=== PATIENT | male | born 1945 | race Caucasian/White ===

== ENCOUNTER 2022-11-30 14:41 | Inpatient (IN) ==
[2022-11-30] MEDS ORDERED: DEXTROSE 50% 50 ML SYRINGE IV ONE ×2 (15:30→17:01)
[2022-11-30] MEDS ORDERED: DEXTROSE 5%-1/2NS 1,000 ML IV SCH (15:30)
[2022-11-30 15:59] LABS: POC Calcium, Ionized 1.05 (1.16-1.32); POC Creatinine 0.8 (0.6-1.2); POC Potassium 4.4 (3.3-5.1)
[2022-11-30 16:25] LABS: Basophils # (Auto) 0.02 K/mcL (0.00-0.30); Basophils % (Auto) 0.3 % (0.0-2.0); Eosinophils # (Auto) 0.07 K/mcL (0.00-0.70); Eosinophils % (Auto) 0.9 % (0.0-7.0); Hematocrit 39.6 % (40.1-51.0); Hemoglobin 12.6 g/dL (13.7-17.5); Lymphocytes # (Auto) 0.48 K/mcL (1.50-4.80); Lymphocytes % (Auto) 6.4 % (15.5-49.0); Mean Cell Volume 89.4 fL (80.0-100.0); Mean Corpuscular HGB Conc 31.8 g/dL (31.0-36.0); Mean Platelet Volume 9.3 fL (8.8-12.5); Monocytes # (Auto) 0.64 K/mcL (0.10-0.90); Monocytes % (Auto) 8.5 % (1.0-12.0); Neutrophils % (Auto) 83.5 % (38.0-78.0); Platelet Count 377 K/mcL (140-440); RBC 4.43 M/mcL (4.63-6.08); Red Cell Distribution Width 13.4 % (11.5-14.5); WBC 7.5 K/mcL (4.5-11.0)
[2022-11-30 16:57] LABS: ALT/SGPT 23 U/L (<40); AST/SGOT 26 U/L (<40); Albumin 3.3 gm/dL (3.2-5.2); Alkaline Phosphatase 39 U/L (39-117); Beta Hydroxybutyrate 0.08 mmol/L (<0.27); Bilirubin,Direct < 0.2 mg/dL (0-0.3); Bilirubin,Total 0.2 mg/dL (0.1-1.0)
[2022-11-30] MEDS ORDERED: DEXTROSE 50% 50 ML VIAL IV ONE (17:11)
[2022-11-30] MEDS ORDERED: DEXTROSE 5% IN WATER 1,000 ML IV SCH (17:15)
[2022-11-30] MEDS ORDERED: LINEZOLID 600 MG/300 ML BAG IV ONE (17:20)
[2022-11-30] MEDS ORDERED: PIPERACILLIN SODIUM/TAZOBACTAM 3.375 GM in DEXTROSE 5% IN WATER 50 ML IV ONE (17:20)
[2022-11-30] MEDS ORDERED: CALCIUM GLUCONATE 4.65 MEQ/10 ML VIAL IV ONE (17:20)
[2022-11-30] MEDS ORDERED: CALCIUM GLUCONATE 4.65 MEQ in DEXTROSE 5% IN WATER 50 ML IV ONE (18:00)
[2022-11-30] MEDS ORDERED: DEXTROSE 10 % IN WATER 1,000 ML IV SCH (18:30)
[2022-11-30] MEDS ORDERED: HALOPERIDOL LACTATE 5 MG/ML VIAL IV ONE (19:45)
[2022-11-30] MEDS ORDERED: DEXTROSE 50% 50 ML VIAL IV PRN (19:49)
[2022-11-30] MEDS ORDERED: LACTULOSE 20 GM/30 ML ORAL.SOL PO PRN (19:49)
[2022-11-30] MEDS ORDERED: ONDANSETRON 4 MG/2 ML VIAL IV PRN (19:49)
[2022-11-30] MEDS ORDERED: DEXTROSE 31 GM ORAL.SUSP PO PRN (19:49)
[2022-11-30] MEDS ORDERED: SENNOSIDES 1 TABLET PO PRN (19:49)
[2022-11-30] MEDS ORDERED: ACETAMINOPHEN 325 MG TABLET PO PRN (19:49)
[2022-11-30] MEDS: HALOPERIDOL LACTATE 5 MG/ML VIAL IV PRN (19:50)
[2022-11-30] MEDS ORDERED: DEXMEDETOMIDINE 100 ML IV ONE (20:28)
[2022-11-30] MEDS ORDERED: DEXMEDETOMIDINE 400 MCG in PREMIX 1 BAG IV SCH (20:30)
[2022-11-30] MEDS ORDERED: QUEtiapine 25 MG TABLET PO SCH (21:00)
[2022-11-30] MEDS ORDERED: INSULIN LISPRO 1 UNIT/0.01 ML UNIT SQ SCH (21:00)
[2022-11-30] MEDS: 0.9 % SODIUM CHLORIDE 250 ML IV SCH (22:15)
[2022-11-30] MEDS: DOCUSATE SODIUM 100 MG CAPSULE PO SCH (23:02)
[2022-11-30] MEDS: 0.9 % SODIUM CHLORIDE 10 ML SYRINGE IV SCH ×2 (23:07→23:08)
[2022-12-01] MEDS: HALOPERIDOL LACTATE 5 MG/ML VIAL IV PRN (01:21)
[2022-12-01] MEDS: morphine 4 MG/ML VIAL IV PRN ×2 (04:04→17:14)
[2022-12-01] MEDS: 0.9 % SODIUM CHLORIDE 10 ML SYRINGE IV SCH ×4 (05:44→20:05)
[2022-12-01] MEDS ORDERED: DEXMEDETOMIDINE 100 ML IV ONE (06:13)
[2022-12-01] MEDS: DEXMEDETOMIDINE 400 MCG in PREMIX 1 BAG IV PRN ×2 (06:14→17:44)
[2022-12-01] MEDS ORDERED: OLANZapine 5 MG TABLET PO SCH ×2 (09:00→18:00)
[2022-12-01] MEDS: ENOXAPARIN 40 MG/0.4 ML SYRINGE SQ SCH (09:05)
[2022-12-01] MEDS: DOCUSATE SODIUM 100 MG CAPSULE PO SCH ×2 (09:05→20:04)
[2022-12-01] MEDS: 0.9 % SODIUM CHLORIDE 250 ML IV SCH ×2 (10:41→18:11)
[2022-12-01] MEDS: OLANZapine 10 MG VIAL IM PRN (11:25)
[2022-12-01] MEDS: OLANZapine 5 MG TABLET PO PRN (17:26)
[2022-12-01] MEDS ORDERED: FUROSEMIDE 40 MG/4 ML VIAL IV SCH (21:00)
[2022-12-02] MEDS: 0.9 % SODIUM CHLORIDE 250 ML IV SCH ×3 (00:08→12:20)
[2022-12-02] MEDS ORDERED: DEXMEDETOMIDINE 100 ML IV ONE ×3 (01:47→19:12)
[2022-12-02] MEDS: DEXMEDETOMIDINE 400 MCG in PREMIX 1 BAG IV PRN ×4 (01:48→19:55)
[2022-12-02] MEDS: 0.9 % SODIUM CHLORIDE 10 ML SYRINGE IV SCH ×3 (05:27→20:19)
[2022-12-02 07:11] LABS: Blood Urea Nitrogen 16 mg/dL (8-23); Calcium 8.9 mg/dL (8.6-10.4); Carbon Dioxide 29 mmol/L (22-30); Chloride 95 mmol/L (96-108); Glomerular Filtration Rate 87; Glucose 125 mg/dL (70-105)
[2022-12-02] MEDS ORDERED: FUROSEMIDE 40 MG/4 ML VIAL IV SCH (07:57)
[2022-12-02] MEDS ORDERED: FUROSEMIDE 250 MG in 0.9 % SODIUM CHLORIDE 225 ML IV SCH ×2 (08:00→20:00)
[2022-12-02] MEDS ORDERED: OLANZapine 5 MG TABLET PO SCH (09:00)
[2022-12-02] MEDS: DOCUSATE SODIUM 100 MG CAPSULE PO SCH (09:22)
[2022-12-02] MEDS: morphine 4 MG/ML VIAL IV PRN ×5 (09:22→18:25)
[2022-12-02] MEDS: ENOXAPARIN 40 MG/0.4 ML SYRINGE SQ SCH (09:22)
[2022-12-02] MEDS: OLANZapine 10 MG VIAL IM PRN (10:10)
[2022-12-02] MEDS ORDERED: morphine 4 MG/ML VIAL NEB PRN ×2 (10:30→19:49)
[2022-12-02] MEDS: OLANZapine 5 MG TABLET PO PRN (12:59)
[2022-12-02] MEDS ORDERED: OLANZapine 5 MG TABLET PO PRN (19:46)
[2022-12-02] MEDS ORDERED: OLANZapine 10 MG VIAL IM PRN (19:46)
[2022-12-02 20:54] LABS: Albumin 3.4 gm/dL (3.2-5.2); Blood Urea Nitrogen 16 mg/dL (8-23); Calcium 8.9 mg/dL (8.6-10.4); Carbon Dioxide 27 mmol/L (22-30); Chloride 94 mmol/L (96-108); Glomerular Filtration Rate 87; Glucose 161 mg/dL (70-105); Phosphorous 3.5 mg/dL (2.5-4.5)
[2022-12-03] MEDS ORDERED: DEXMEDETOMIDINE 100 ML IV ONE ×3 (00:56→14:35)
[2022-12-03] MEDS: DEXMEDETOMIDINE 400 MCG in PREMIX 1 BAG IV PRN (00:57)
[2022-12-03] MEDS: 0.9 % SODIUM CHLORIDE 10 ML SYRINGE IV SCH ×3 (06:03→20:07)
[2022-12-03] MEDS ORDERED: 0.9 % SODIUM CHLORIDE 250 ML IV SCH (07:00)
[2022-12-03] MEDS: DEXMEDETOMIDINE 400 MCG in PREMIX 1 BAG IV SCH ×3 (07:14→20:37)
[2022-12-03] MEDS ORDERED: METOLAZONE 2.5 MG TABLET PO ONE (08:02)
[2022-12-03] MEDS ORDERED: OLANZapine 5 MG TABLET PO SCH ×2 (09:00)
[2022-12-03 09:50] LABS: Albumin 3.1 gm/dL (3.2-5.2); Blood Urea Nitrogen 16 mg/dL (8-23); Calcium 8.8 mg/dL (8.6-10.4); Carbon Dioxide 34 mmol/L (22-30); Chloride 94 mmol/L (96-108); Glomerular Filtration Rate 91; Glucose 146 mg/dL (70-105); Phosphorous 3.5 mg/dL (2.5-4.5)
[2022-12-03] MEDS ORDERED: morphine 4 MG/ML VIAL NEB PRN (11:43)
[2022-12-03] MEDS: morphine 4 MG/ML VIAL IV PRN ×10 (12:07→23:18)
[2022-12-03] MEDS: LORazepam 2 MG/ML VIAL IV PRN ×6 (12:30→21:18)
[2022-12-03] MEDS ORDERED: SCOPOLAMINE 1 PATCH PATCH TOPICAL SCH (13:15)
[2022-12-03] MEDS: HALOPERIDOL LACTATE 5 MG/ML VIAL IV PRN ×3 (13:48→21:44)
[2022-12-03] MEDS: morphine 10 MG/ML VIAL NEB PRN ×2 (16:30→21:25)
[2022-12-04] MEDS: morphine 4 MG/ML VIAL IV PRN ×6 (00:22→05:48)
[2022-12-04] MEDS: LORazepam 2 MG/ML VIAL IV PRN ×3 (00:47→03:10)
[2022-12-04] MEDS: morphine 10 MG/ML VIAL NEB PRN (01:37)
[2022-12-04] MEDS: DEXMEDETOMIDINE 400 MCG in PREMIX 1 BAG IV SCH (01:59)
[2022-12-04] MEDS: 0.9 % SODIUM CHLORIDE 10 ML SYRINGE IV SCH (05:48)
== END 2022-12-04 10:53 | disposition expired | DRG 951 ==
LOC: ED 14:41 → ICU 22:00
PROVIDERS: ADMIT Internal Medicine; ATTEND Internal Medicine